=== PATIENT | female | born 1960 | race Caucasian/White ===

== ENCOUNTER 2018-05-07 11:12 | Emergency (ER) | payer MEDICARE, MEDICAID ==
[~2018-05-07] VITALS: Ht 167.6 cm; Wt 120.5 kg
[2018-05-07 11:23] VITALS: BP 130/74
[2018-05-07 12:04] LABS: EOSINOPHILS % (AUTO) 2.8 % (1.0-6.0); HEMATOCRIT 43.9 % (36-46); HEMOGLOBIN 14.9 g/dL (12.0-16.0); LYMPHOCYTES # (AUTO) 1.5 K/uL (1.0-4.8); LYMPHOCYTES % (AUTO) 28.6 % (22.0-44.0); MEAN CORPUSCULAR HEMOGLOBIN 31.6 pg (26.0-34.0); MEAN CORPUSCULAR HGB CONC 33.9 G/dL (31.0-37.0); MEAN CORPUSCULAR VOLUME 93 fL (80-100); MONOCYTES # (AUTO) 0.6 K/uL (0.1-1.0); MONOCYTES % (AUTO) 11.7 % (2.0-9.0); NEUTROPHILS # (AUTO) 2.9 K/uL (1.8-7.7); NEUTROPHILS % (AUTO) 55.9 % (40.0-70.0); PLATELET COUNT (AUTO) 165 K/uL (150-450); RED BLOOD CELL COUNT(AUTO) 4.71 MIL/uL (4.00-5.20); RED CELL DISTRIBUTION WIDTH 15.2 % (11.5-14.5)
[2018-05-07 12:15] LABS: ANION GAP 9 mmol/L (8-16); CALCIUM, TOTAL 8.8 mg/dL (8.8-10.5); CARBON DIOXIDE 26 mmol/L (22-29); CHLORIDE 106 mmol/L (98-107); CREATININE 0.63 mg/dL (0.60-1.30); GLOMERULAR FILTR. RATE CALC > 60 mL/min (>60); GLUCOSE,RANDOM 83 mg/dL (70-110); SODIUM SERUM 141 mmol/L (136-145); UREA NITROGEN, BLOOD 12 mg/dL (7-18)
[2018-05-07 12:26] LABS: ALANINE AMINOTRANSFERASE 23 U/L (12-78); ALBUMIN 2.9 g/dL (3.4-5.0); ALKALINE PHOSPHATASE 84 U/L (46-116); ASPARTATE AMINOTRANSFERASE 24 U/L (15-37); BILIRUBIN,TOTAL 0.9 mg/dL (0.1-1.0); TOTAL PROTEIN, SERUM 6.8 g/dL (6.4-8.2)
[2018-05-07 12:37] LABS: PROTHROMBIN TIME 78.3 SEC (9.4-11.6)
[2018-05-07 12:41] LABS: INR 8.1 (0.9-1.1)
[2018-05-09] MEDS ORDERED: DSS100 PO (13:35)
[2018-05-09] MEDS ORDERED: LEVO50 PO (13:35)
[2018-05-09] MEDS ORDERED: SIMV-259 PO (13:35)
[2018-05-09] MEDS ORDERED: ESCI20TA PO (13:35)
[2018-05-09] MEDS ORDERED: METO25 PO (13:35)
[2018-05-09] MEDS ORDERED: WARF3TAB29 PO (13:35)
[2018-05-14] MEDS ORDERED: APIX5TAB PO (12:35)
== END 2018-05-07 14:08 | disposition home or self-care (01) ==
LOC: EMS 11:15
DX: R79.1 Abnormal coagulation profile (principal); K92.1 Melena; I10 Essential (primary) hypertension; E03.9 Hypothyroidism, unspecified; Z86.73 Personal history of transient ischemic attack (TIA), and cerebral infarction without residual deficits
CPT/HCPCS: 86850; 86900; 86901; 99284